=== PATIENT | female | born 1975 | race Hispanic/Latino ===

== ENCOUNTER 2017-03-20 17:35 | Emergency (ER) | payer SELFPAY ==
[2017-03-20 18:29] LABS: #Basophils 0.1 thou/uL (0.0-0.2); #Lymphocytes 1.6 thou/uL (1.20-3.40); #Monocytes 0.8 thou/uL (0.11-0.59); %Basophils 0.5 % (0.0-1.0); %Eosinophils 0.5 % (0.0-10.0); %Lymphocytes 15.3 % (21.0-51.0); %Monocytes 7.7 % (0.0-10.0); Hematocrit 44.9 % (36.0-47.0); Mean Platelet Volume 8.1 fL (7.4-10.4); White Blood Cell (WBC) Count 10.5 thou/uL (4.8-10.8)
[2017-03-20 19:00] LABS: ALT (SGPT) 13 U/L (8-55); AST (SGOT) 19 U/L (5-34); Alkaline Phosphatase 74 U/L (40-150); Anion Gap 14 mmol/L (10-20); BUN (Urea Nitrogen) 14 mg/dL (7.0-18.7); Bilirubin, Total 0.3 mg/dL (0.2-1.2); Calc. Creatinine Clearance 0 mL/min (70-130); Carbon Dioxide 27 mmol/L (22-29); Chloride 101 mmol/L (98-107); Estimated GFR-MDRD 69; Protein, Total 8.5 g/dL (6.0-8.3)
[2017-03-20 19:10] LABS: Bilirubin Negative (Negative); Blood, Urine Negative (Negative); Glucose, Urine (Dipstick) Negative (Negative); Ketone, Urine Negative (Negative); Nitrite Negative (Negative); Protein, Urine (Dipstick) Trace mg/dL (Neg-Trace); Urobilinogen 0.2 mg/dL (0.2-1.0)
--- NOTE | 2017-03-20 19:35 | ULT ---
ULTRASOUND PELVIC WITH DOPPLER 03/20/17 HISTORY: Bleeding. COMPARISON: None. TECHNIQUE: Real time tidwell scale and color evaluation as well as spectral analysis of the pelvis was performed tr ansabdominal and transvaginal approach. The uterus measures 7.6 x 3.5 x 5 cm. Endometrial thickness is 8 mm. Right ovary measures 2.7 x 1.7 x 3.4 cm with a 1.3 cm cyst. The left ovary measures 5 x 4.2 x 4.6 cm with a homogeneously hyperechoic echotexture without follicle suggesting a hemorrhagic cyst. No free fluid. Adequate vascular flow to both ovaries. IMPRESSION: 1. Left ovarian likely hemorrhagic cyst. Followup ultrasound in 2-3 cycles recommended. 2. Normal appearance of the uterus and endometrium. 3. Adequate vascular flow to both ovaries. POS: MARCIAL
== END 2017-03-20 20:32 | disposition home or self-care (01) ==
LOC: ERS 17:35
DX: N83.202 Unspecified ovarian cyst, left side (principal); I10 Essential (primary) hypertension; F41.9 Anxiety disorder, unspecified; F32.9 Major depressive disorder, single episode, unspecified; F17.210 Nicotine dependence, cigarettes, uncomplicated; Z79.899 Other long term (current) drug therapy
CPT/HCPCS: 76856; 80053; 81003; 81025; 85025; 93976; 96360; 99406

== ENCOUNTER 2017-07-20 16:14 | Emergency (ER) | payer SELFPAY ==
[2017-07-20 18:06] LABS: #Basophils 0.1 thou/uL (0.0-0.2); #Eosinphils 0.1 thou/uL (0.0-0.7); #Lymphocytes 1.7 thou/uL (1.20-3.40); #Monocytes 0.5 thou/uL (0.11-0.59); #Neutrophils 5.4 thou/uL (1.40-6.50); %Basophils 0.7 % (0.0-1.0); %Eosinophils 0.7 % (0.0-10.0); %Monocytes 6.5 % (0.0-10.0); %Neutrophils 70.1 % (42.0-75.0); Hemoglobin 11.8 g/dL (12.0-16.0); Mean Corpuscular HGB CONC 34.3 g/dL (32.0-36.0); Mean Corpuscular Volume 96.3 fl (81.0-99.0); Mean Platelet Volume 7.9 fL (7.4-10.4); Platelet Count 264 thou/uL (130-400); RBC Distribution Width 12.3 % (11.5-14.5); Red Blood Cell (RBC) Count 3.58 mill/uL (4.20-5.40); White Blood Cell (WBC) Count 7.7 thou/uL (4.8-10.8)
[2017-07-20 18:27] LABS: CRP (Inflammatory) 3.21 mg/dL (= or < 0.5); Uric Acid 2.5 mg/dL (2.6-6.0)
[2017-07-20 18:31] LABS: ALT (SGPT) 17 U/L (8-55); AST (SGOT) 16 U/L (5-34); Albumin 3.8 g/dL (3.5-5.0); Alkaline Phosphatase 68 U/L (40-150); Anion Gap 11 mmol/L (10-20); BUN (Urea Nitrogen) 10 mg/dL (7.0-18.7); Bilirubin, Total 0.3 mg/dL (0.2-1.2); Calc. Creatinine Clearance 0 mL/min (70-130); Carbon Dioxide 25 mmol/L (22-29); Chloride 104 mmol/L (98-107); Estimated GFR-MDRD 75; Globulin 3.1 g/dL (2.4-3.5); Glucose 87 mg/dL (70-105); Potassium 3.9 mmol/L (3.5-5.1); Protein, Total 6.9 g/dL (6.0-8.3); Sodium 136 mmol/L (136-145)
[2017-07-20] MEDS ORDERED: Ketorolac Tromethamine 30 MG/ML VIAL ONE (18:34)
[2017-07-20] MEDS ORDERED: Clindamycin 150 MG CAP ONE (18:40)
--- NOTE | 2017-07-20 20:11 | RAD ---
THREE VIEWS OF THE LEFT ANKLE 07/20/17 INDICATION: Left ankle swelling and redness. IMPRESSION: No acute fracture or subluxation is evident. Enthesopathic change seen off the plantar calcaneus. Vis ualized hindfoot is otherwise within normal limits. There is soft tissue swelling about the ankle. POS: ROM
== END 2017-07-20 19:05 | disposition home or self-care (01) ==
LOC: ERS 16:14
DX: M25.572 Pain in left ankle and joints of left foot (principal); I10 Essential (primary) hypertension; F41.9 Anxiety disorder, unspecified; F32.9 Major depressive disorder, single episode, unspecified; F17.210 Nicotine dependence, cigarettes, uncomplicated
CPT/HCPCS: 36415; 80053; 83605; 84550; 85025; 85652; 86140; 96372; J1885

== ENCOUNTER 2020-01-05 15:35 | Emergency (ER) | payer SELFPAY ==
[2020-01-05] MEDS ORDERED: cloNIDine 0.1 MG TAB ONE (16:13)
[2020-01-05] MEDS ORDERED: Diazepam 5 MG TAB ONE (16:13)
[2020-01-05] MEDS ORDERED: Diazepam 5 MG TAB PO SCH (16:15)
[2020-01-05] MEDS ORDERED: cloNIDine 0.1 MG TAB PO SCH (16:15)
== END 2020-01-05 17:20 | disposition home or self-care (01) ==
LOC: ERS 15:35
DX: R19.7 Diarrhea, unspecified (principal); F41.9 Anxiety disorder, unspecified; I10 Essential (primary) hypertension; F32.9 Major depressive disorder, single episode, unspecified; F17.210 Nicotine dependence, cigarettes, uncomplicated
CPT/HCPCS: 99283

== ENCOUNTER 2020-01-14 15:40 | Emergency (ER) | payer SELFPAY | END 2020-01-14 17:02 | disposition home or self-care (01) | LOC: ERS 15:40 | DX: F41.9 Anxiety disorder, unspecified (principal); I10 Essential (primary) hypertension; F32.9 Major depressive disorder, single episode, unspecified; F41.0 Panic disorder [episodic paroxysmal anxiety]; F17.210 Nicotine dependence, cigarettes, uncomplicated | CPT/HCPCS: 99283 ==

== ENCOUNTER 2021-01-08 00:56 | Emergency (ER) | payer SELFPAY ==
[2021-01-08] MEDS ORDERED: Lorazepam 2 MG/ML VIAL ONE (01:15)
[2021-01-08 01:41] LABS: #Lymphocytes 1.1 thou/uL (1.20-3.40); #Monocytes 0.8 thou/uL (0.11-0.59); #Neutrophils 7.6 thou/uL (1.40-6.50); %Basophils 0.4 % (0.0-1.0); %Eosinophils 0.3 % (0.0-10.0); %Lymphocytes 11.7 % (21.0-51.0); %Monocytes 8.5 % (0.0-10.0); %Neutrophils 79.1 % (42.0-75.0); Mean Corpuscular HGB CONC 35.5 g/dL (32.0-36.0); Mean Corpuscular Hemoglobin 33.9 pg (27.0-31.0); Mean Corpuscular Volume 95.4 fL (78.0-98.0); Mean Platelet Volume 8.2 fL (7.4-10.4); Platelet Count 277 thou/uL (130-400); RBC Distribution Width 10.7 % (11.5-14.5); Red Blood Cell (RBC) Count 3.85 mill/uL (4.20-5.40); White Blood Cell (WBC) Count 9.6 thou/uL (4.8-10.8)
[2021-01-08 01:59] LABS: ALT (SGPT) 14 U/L (8-55); AST (SGOT) 23 U/L (5-34); Albumin 4.6 g/dL (3.5-5.0); Alkaline Phosphatase 55 U/L (40-110); Anion Gap 17 mmol/L (10-20); BUN (Urea Nitrogen) 18 mg/dL (7.0-18.7); Bilirubin, Total 0.3 mg/dL (0.2-1.2); CK (CPK) 241 U/L (29-168); Calc. Creatinine Clearance 0 mL/min (70-130); Calcium 9.4 mg/dL (7.8-10.44); Carbon Dioxide 21 mmol/L (22-29); Chloride 105 mmol/L (98-107); Globulin 3.5 g/dL (2.4-3.5); Glucose 95 mg/dL (70-105); Potassium 3.5 mmol/L (3.5-5.1); Protein, Total 8.1 g/dL (6.0-8.3); Sodium 139 mmol/L (136-145)
[2021-01-08 02:02] LABS: BHCG - Serum Negative (NEGATIVE); Pregs Control Background? CLEAR/WHITE (CLR/WHITE); Pregs Control Bar Appear? YES (CONTROL BAR)
[2021-01-08 02:47] LABS: Bilirubin Negative (Negative); Blood, Urine 2+ (Negative); Clarity Clear (Clear); Glucose, Urine (Dipstick) Normal (Negative); Ketone, Urine Negative (Negative); Leukocyte Negative Leu/uL (Negative); Nitrite Negative (Negative); Protein, Urine (Dipstick) 100 mg/dL (Neg-Trace); Specific Gravity, Urine 1.031 (1.002-1.036); Urobilinogen Normal mg/dL (Less than 2)
[2021-01-08 02:48] LABS: Bacteria/HPF None Seen HPF (None Seen); RBC/HPF 21-50 HPF (0-3); Squamous Epithelial 0-3 HPF (0-3)
[2021-01-08 02:56] LABS: Amphetamine Detected (NotDetected); Barbiturates Screen Not Detected (NotDetected); Benzodiazepine Screen Detected (NotDetected); Cocaine Metabolite Screen Not Detected (NotDetected); Methadone Not Detected (NotDetected); Methamphetamine Detected (NotDetected); Opiate Screen Not Detected (NotDetected); Oxycodone Screen Not Detected (NotDetected); Phencyclidine (PCP) Not Detected (NotDetected); THC/Cannabinoid Screen Detected (NotDetected); Tricyclic Screen Not Detected (NotDetected)
== END 2021-01-08 03:16 | disposition home or self-care (01) ==
LOC: ERS 00:56
DX: F19.10 Other psychoactive substance abuse, uncomplicated (principal); R00.0 Tachycardia, unspecified; I10 Essential (primary) hypertension; F17.210 Nicotine dependence, cigarettes, uncomplicated
CPT/HCPCS: 71045; 80053; 80306; 81003; 81015; 82550; 84703; 85025; 93005; 96360; J2060

== ENCOUNTER 2021-05-08 12:07 | Emergency (ER) | payer SELFPAY | END 2021-05-08 15:31 | disposition left against medical advice (07) | LOC: ERS 12:07 | DX: Z53.21 Procedure and treatment not carried out due to patient leaving prior to being seen by health care provider (principal) ==

== ENCOUNTER 2022-05-25 13:01 | Emergency (ER) | payer SELFPAY ==
[2022-05-25] MEDS ORDERED: predniSONE 20 MG TAB ONE (14:16)
== END 2022-05-25 15:11 | disposition home or self-care (01) ==
LOC: ERS 13:01
DX: G51.0 Bell's palsy (principal); I10 Essential (primary) hypertension; F17.210 Nicotine dependence, cigarettes, uncomplicated
CPT/HCPCS: 99283; J7512